=== PATIENT | female | born 1980 | race Caucasian/White ===

== ENCOUNTER → 2019-12-15 18:16 | Outpatient (CLI) | payer OTHER, SELFPAY ==
--- NOTE | ~2019-12-15 | MM_ITS ---
EXAMINATION: MM screening nicole BI w lissette HISTORY: Screening mammogram TECHNIQUE: Craniocaudal and mediolateral oblique 3-D tomosynthesis images were obtained and synthetic 2-D images were generated. CAD analysis was submitted and interpreted. COMPARISON: No prior mammogram is available for comparison at this institution. BREAST PARENCHYMAL COMPOSITION: The breasts are heterogeneously dense, which may obscure small masses . FINDINGS: There is no evidence of suspicious mass, calcification, or architectural distortion to sugg est malignancy in either breast. There has been no suspicious interval change. IMPRESSION: 1. No mammographic evidence of malignancy. 2. Recommend routine screening mammography in one year. BI-RADS Category 1: Negative Reviewed, dictated and finalized at location A.
== END ==
PROVIDERS: Visit Provider Nurse Practitioner Obstetrics & Gynecology
DX: Z12.31 Encounter for screening mammogram for malignant neoplasm of breast (principal)
CPT/HCPCS: 77063; 77067

== ENCOUNTER → 2021-08-03 16:23 | Outpatient (CLI) | payer OTHER, SELFPAY ==
--- NOTE | ~2021-08-03 | MM_ITS ---
EXAMINATION: MM screening nicole BI w lissette HISTORY: Screening mammogram TECHNIQUE: Craniocaudal and mediolateral oblique 3-D tomosynthesis images were obtained and synthetic 2-D images were generated. Bilateral rotated lateral CC views. CAD analysis was submitted and interp reted. COMPARISON: 12/15/2019 bilateral screening mammogram BREAST PARENCHYMAL COMPOSITION: The breasts are heterogeneously dense, which may obscure small masses . FINDINGS: There is no evidence of suspicious mass, calcification, or architectural distortion to sugg est malignancy in either breast. There has been no suspicious interval change. IMPRESSION: 1. No mammographic evidence of malignancy. 2. Recommend routine screening mammography in one year. BI-RADS Category 1: Negative Reviewed, dictated and finalized at location A. CAL STORE MANAGER
== END ==
PROVIDERS: Visit Provider Advanced Practice Midwife
DX: Z12.31 Encounter for screening mammogram for malignant neoplasm of breast (principal)
CPT/HCPCS: 77063; 77067

== ENCOUNTER → 2021-11-15 15:39 | Outpatient (CLI) | payer OTHER, SELFPAY ==
--- NOTE | ~2021-11-15 | XR_ITS ---
EXAMINATION: XR shoulder LT min 2V INDICATION: Left shoulder pain TECHNIQUE: Four views of the left shoulder are submitted. COMPARISON: None FINDINGS: Normal alignment. No fracture. Glenohumeral and acromioclavicular joint spaces are normal. Soft tissues are unremarkable. IMPRESSION: 1. No acute osseous abnormality. Reviewed, dictated and finalized at location A. MACY CONSULTANT
== END ==
PROVIDERS: PCP Physician Assistant; Visit Provider Physician Assistant
DX: M54.12 Radiculopathy, cervical region (principal)
CPT/HCPCS: 73030

== ENCOUNTER 2023-01-05 11:15 | Emergency (ER) | payer OTHER, SELFPAY ==
--- NOTE | 2023-01-05 11:21 | ED.NAVMDI ---
HPI - Nausea/Vomiting/Diarrhea General Chief complaint: Nausea/Vomiting/Diarrhea Stated complaint: indigestion symptoms Time Seen by Provider: 01/05/23 11:21 Source: patient Mode of arrival: ambulatory Limitations: no limitations History of Present Illness HPI Narrative: Sierra is a 42-year-old female patient presenting to the clinic today with complaints of indigestion since Sunday. She report she went to the ER on Sunday and had a cardiac workup done which was normal. States her EKG was normal at that time. Received prescription for omeprazole 20 mg tablets daily. She reports she is having indigestion without abdominal pain. States that the congestion is worse when lying down-prior and after eating. Denies any changes in bowel habits. Denies any hematemesis or blood in stool. Denies any ingestion pain currently. Related Data Home Medications Medication Instructions Recorded Confirmed omeprazole 20 mg capsule,delayed 20 mg PO DAILY 01/05/23 01/05/23 release Allergies Allergy/AdvReac Type Severity Reaction Status Date / Time No Known Allergies Allergy Unknown Verified 01/05/23 11:42 Review of Systems Review of Systems: Pertinent positives per HPI. Patient denies any fever, chills, rash, headache, visual changes, dizziness, cough, runny nose, sore throat, shortness of breath, chest pain, palpitations, nausea, vomiting, diarrhea, constipation, abdominal pain, or any urinary issues. PMFSH Comments At the time of my signature, I reviewed and agree with the nursing past medical, surgical, social, and family history. There is no relevant family history pertinent to the patient complaint. Exam Narrative: General: Well-developed, well nourished, in no apparent distress. Head: Normocephalic, atraumatic. Cardio: Regular rate and rhythm, s1 and s2 normal, no murmur appreciated. Resp: Clear to auscultation bilaterally, no rhonchi, rales, wheezing or rubs. Abdomen: Soft, pliable, bowel sounds present in all quadrants, mild tenderness over the epigastrium, no organomegly, no CVAT tenderness. Extremities: No deformity, no edema, no cyanosis, capillary refill less than 2 seconds, peripheral pulses palpable and strong. Integumentary: Steen, warm, and dry, intact without lesion, no rashes. Course Course Emergency Course: Portions of this record may have been created with voice recognition software. Level of Care: Express Care Visit Vital Signs Vital signs: Vital signs reviewed MDM - Nausea/Vomiting/Diarrhea MDM Narrative Medical decision making narrative: At the time of visit patient is resting comfortably on the exam table. She denies any current indigestion. Went to [facility] ER in [facility] on Sunday and had cardiac workup done which was unremarkable. She was prescribed omeprazole 20 mg tablets. Is still having GERD issues. Recommend increasing dosage to 40 mg daily and supportive measures were discussed with the patient. Differential Diagnosis Differential diagnosis: Likely other (Gastroenteritis, gastritis, GERD, H pylori, Whitaker's esophagus, gallbladder disease, peptic ulcer, GI bleed) Discharge Plan Discharge Clinical Impression: Gastroesophageal reflux disease Qualifiers: Esophagitis presence: esophagitis presence not specified Qualified Code(s): K21.9 - Gastro-esophageal reflux disease without esophagitis Patient Disposition: Home, Self-Care Condition: Stable Instructions: Antibiotic Form, GERD (Gastroesophageal Reflux Disease) (ED) Additional Instructions: Increase fluids and stay well hydrated Avoid eating spicy, greasy, fatty foods, chocolate, or drinking caffeine. Avoid foods that cause you to feel bloated. Stop smoking Lose weight/exercise Stay upright for at least 60 minutes after eating. May use tums, Maalox, Mylanta, or Rolaids for immediate relief Increase omeprazole dosing to 40 mg daily Follow up with your PCP on Sunday
[2023-01-05 11:30] VITALS: BP 126/82; PULSE 75; RESP 16; TEMP 36.8; O2SAT 98
== END 2023-01-05 11:44 | disposition home or self-care (01) ==
PROVIDERS: Emergency Provider Nurse Practitioner Family; PCP Family Medicine
DX: K21.9 Gastro-esophageal reflux disease without esophagitis (principal)
CPT/HCPCS: 99211; G0463

== ENCOUNTER → 2023-01-26 16:18 | Outpatient (CLI) | payer OTHER, SELFPAY ==
--- NOTE | ~2023-01-26 | MM_ITS ---
EXAMINATION: MM screening [facility] BI w lissette HISTORY: Screening mammogram TECHNIQUE: Craniocaudal and mediolateral oblique 3-D tomosynthesis images were obtained and synthetic 2-D images were generated. CAD analysis was submitted and interpreted. COMPARISON: 08/03/2021, 12/15/2019 BREAST PARENCHYMAL COMPOSITION: The breasts are heterogeneously dense, which may obscure small masses . FINDINGS: RIGHT BREAST: There is an obscured mass in the middle third of the slightly outer breast best appreci ated 4 cm from the nipple on the craniocaudal view. LEFT BREAST: There is a possible mass in the middle third of the central breast best appreciated 4 cm from the nipple on the mediolateral oblique view. IMPRESSION: 1. Bilateral breast findings as above. 2. Additional mammographic views and possible breast ultrasound are recommended. BI-RADS Category 0: Incomplete: Needs additional imaging evaluation. Reviewed, dictated and finalized at location A. IMPRESSION: 1. Bilateral breast findings as above. 2. Additional mammographic views and possible breast ultrasound are recommended . BI-RADS Category 0: Incomplete: Needs additional imaging evaluation.
== END ==
PROVIDERS: PCP Family Medicine; Visit Provider Nurse Practitioner Obstetrics & Gynecology
DX: Z12.31 Encounter for screening mammogram for malignant neoplasm of breast (principal); R92.8 Other abnormal and inconclusive findings on diagnostic imaging of breast
CPT/HCPCS: 77063; 77067

== ENCOUNTER 2023-02-12 09:00 | Outpatient (NON) | payer OTHER, SELFPAY | END 2023-02-12 09:01 | disposition home or self-care (01) | LOC: ANHLAB 02-13 07:43 | PROVIDERS: PCP Family Medicine; Visit Provider Internal Medicine Gastroenterology | DX: K29.70 Gastritis, unspecified, without bleeding (principal) | CPT/HCPCS: 88305 ==

== ENCOUNTER 2023-02-12 10:02 | Day surgery (SDC) | payer OTHER, SELFPAY ==
[2023-01-30 08:29] VITALS: BMI 25.9
--- NOTE | 2023-02-09 14:15 | P.PNAN_ITS ---
Anes - Initial Pre Proc Eval Procedure: Operation Date: 02/12/23 12:30 Proposed Procedures p Esophagogastroduodenoscopy - Leonardo Wang MD Date/Time: 02/09/23 14:15 Surgeon: Leonardo Wang MD Pre Op Diagnosis: Heart Burn Patient Data Age: 42 Gender: F Height: 1.7 m Weight: 75 kg Allergies Allergy/AdvReac Type Severity Reaction Status Date / Time No Known Allergies Allergy Unknown Verified 02/12/23 11:31 Home Medications Medication Instructions Recorded Confirmed Type omeprazole 40 mg capsule,delayed 40 mg PO DAILY #90 caps 01/09/23 02/12/23 Rx release alprazolam 0.5 mg tablet 0.5 mg PO DAILY PRN anxiety #30 02/02/23 02/12/23 Rx tabs Patient hx anesthesia problems: none Family hx anesthesia problems: none Results Review: All pre-operative results and documents have been reviewed as part of the pre- operative evaluation. [facility] Past Medical History Medical History Gastritis Surgical History Surgical History History of ankle surgery right 2001 History of anterior cruciate ligament surgery left 1996 History of D&C miscarriage 2013 Family History Family History Father Diabetes mellitus Mother No problems noted. Social History Social History (Updated 01/09/23 @ 15:34 by Nandini Maurer MA) Smoking status: Never smoker Alcohol intake: current Alcohol use details: occassional Substance use: never Substance use type: does not use Lack of Transportation: No Lack of Food: Never True Current Housing: I Have Housing Concerned About Future Housing: No Difficulty Paying Gas/Electric Bills: No Difficulty Paying for Meds: No Currently Unemployed: No Education: Master's Degree or Higher Difficulty w/ Childcare or Family Care: No Living arrangements: with family Occupation/Education: occupation Gender identity (if verbalized by the patient): Female Sexual Orientation (if Verbalized by the Patient): Straight or Heterosexual Spiritual care concerns: No Anes - Eval Final PreProcedure Day of Procedure 02/09/23 14:15 Patient weight: overweight Heart: regular rate and rhythm Lungs: clear to auscultation Airway: Mallampati scale class II Neurological: alert and oriented Last oral intake: >/= 8 hours ASA classification: II Emergent: no Anesthetic plan: proceed Anesthesia type and monitoring: general GIVS and standard monitoring Results Review: All pre-operative results and documents have been reviewed as part of the pre- operative evaluation. Informed Consent: The patient's anesthetic plan and its attendant risks and benefits were discussed with the patient/family/POA. Questions were solicited and answers provided to the satisfaction of the patient/family/POA.
[2023-02-12 11:00] VITALS: BP 126/88; PULSE 73; RESP 20; TEMP 37; O2SAT 100
--- NOTE | 2023-02-12 11:03 | PM.HPGS ---
History of Present Illness History of Present Illness Consent: Risks, benefits, and alternatives have been discussed and questions answered. Patient agrees to proceed with procedure. Chief complaint: Heart Burn Narrative: Sierra Amador is a 42 year old female Who suffers from indigestion. It began with chest pain 1 night. She actually went to urgent care and was evaluated for possible heart disease. She is somewhat improved since starting omeprazole. She believes that her symptoms are worsened by or may be partly related to stress. She has had no dysphagia. She did lose about 14 lb. She has been going through quite a bit of stress lately. Review of Systems Review of Systems: All systems reviewed & are unremarkable except as noted in HPI and below PMFSH Past Medical History Medical History Gastritis Surgical History Surgical History History of ankle surgery right 2001 History of anterior cruciate ligament surgery left 1996 History of D&C miscarriage 2006, 2013 Family History Family History Father Diabetes mellitus Mother No problems noted. Social History Social History (Updated 01/09/23 @ 15:34 by Nandini Maurer MA) Smoking status: Never smoker Alcohol intake: current Alcohol use details: occassional Substance use: never Substance use type: does not use Lack of Transportation: No Lack of Food: Never True Current Housing: I Have Housing Concerned About Future Housing: No Difficulty Paying Gas/Electric Bills: No Difficulty Paying for Meds: No Currently Unemployed: No Education: Master's Degree or Higher Difficulty w/ Childcare or Family Care: No Living arrangements: with family Occupation/Education: occupation Gender identity (if verbalized by the patient): Female Sexual Orientation (if Verbalized by the Patient): Straight or Heterosexual Spiritual care concerns: No Meds Home Medications and Allergies Home Medications Medication Instructions Recorded Confirmed Type omeprazole 40 mg capsule,delayed 40 mg PO DAILY #90 caps 01/09/23 02/12/23 Rx release alprazolam 0.5 mg tablet 0.5 mg PO DAILY PRN anxiety #30 02/02/23 02/12/23 Rx tabs Allergies Allergy/AdvReac Type Severity Reaction Status Date / Time No Known Allergies Allergy Unknown Verified 02/12/23 11:31 Exam Const: General: alert Orientation/consciousness: patient oriented x3 Resp: Auscultation: clear to auscultation bilaterally Cardio: Rhythm: regular rhythm GI: GI Palp: Yes Soft to palpation and No Tenderness to palpation present (GI) Neuro: General: patient oriented x3 Assessment and Plan Assessment and plan (1) Gastroesophageal reflux disease: Qualifiers: Esophagitis presence: esophagitis presence not specified Qualified Code(s): K21.9 - Gastro-esophageal reflux disease without esophagitis Code(s): K21.9 - Gastro-esophageal reflux disease without esophagitis Status: Inactive Assessment and Plan: EGD with possible biopsy or dilatation or cautery.
[2023-02-12] MEDS: LACTATED RINGERS 1,000 ML 150 ML IV CONT (11:34)
[2023-02-12 12:16] VITALS: BP 101/60; PULSE 63; RESP 14; O2SAT 97
[2023-02-12 12:26] VITALS: BP 115/72; PULSE 74; RESP 16; O2SAT 100
[2023-02-12 12:36] VITALS: BP 124/81; PULSE 70; RESP 18; O2SAT 100
--- NOTE | 2023-02-12 13:23 | WPDANESPN ---
Anes - Prog Note Post-Op Date/Time: 02/12/23 13:23 Cardiovascular status: normal Respiratory status: normal Airway patency: baseline Mental status: baseline Post-Op hydration status: normal Vital Signs: Last Vital Signs Temp 37.0 C 02/12/23 11:00 Pulse 70 02/12/23 12:36 Resp 18 02/12/23 12:36 BP 124/81 02/12/23 12:36 Pulse Ox 100 02/12/23 12:36 O2 Del Method Room Air 02/12/23 12:36 Pain Score (VAS): 0 I/O: Intake & Output 02/11/23 02/12/23 02/12/23 23:59 07:59 15:59 Intake Total 350 Balance 350 Post-procedural complaints: none Patient Feedback: Patient satisfied with anesthetic care. Other Findings: Patient vital signs back to baseline. Patient denies nausea and vomiting. Patient's pain under control. Patient OK for discharge.
== END 2023-02-12 12:58 | disposition home or self-care (01) ==
PROVIDERS: PCP Family Medicine; Visit Provider Internal Medicine Gastroenterology
PROC: 0DJ08ZZ Inspection of Upper Intestinal Tract, Via Natural or Artificial Opening Endoscopic (ICD-10-PCS; CPT 43235; principal; 2023-02-12 12:30)
DX: K21.9 Gastro-esophageal reflux disease without esophagitis (principal)
CPT/HCPCS: 43239

== ENCOUNTER 2023-02-21 12:03 | Outpatient (CLI) | payer OTHER, SELFPAY ==
--- NOTE | ~2023-02-21 | MMUS_ITS ---
EXAMINATION: MM diagnostic nicole BI w lissette, US breast BI complete HISTORY: 01/26/2023 screening mammogram findings: Obscured mass in middle third of slightly outer right breast 4 cm from nipple on CC view and possible mass in middle third of central left breast 4 cm fro m nipple on MLO view TECHNIQUE: Additional 3-D tomosynthesis images of both breasts were performed and synthetic 2-D image s were generated. CAD analysis was submitted and interpreted. High resolution bilateral complete [facility]ia st ultrasound examination including all 4 quadrants and subareolar areas was performed. COMPARISON: 01/26/2023 bilateral screening mammogram FINDINGS: MAMMOGRAPHIC FINDINGS: Approximately 1.4 cm circumscribed low-density opacity is suggested in the inner aspect of the upper right breast, partially obscured by heterogeneously dense fibroglandular stroma. The heterogeneously dense stroma may obscure additional masses. No suspicious mass or architectural distortion is evident. No malignant calcification, skin thickenin g or retraction of either breast is detected. ULTRASOUND: Right breast: 7:00 2 cm from nipple: Parallel circumscribed approximately 2.3 x 5 mm sonolucency with through trans mission, likely a duct or cyst 10:00 7 cm from nipple: Approximately 4 mm simple cyst with through transmission posterior enhancemen t 10:00 2 cm from nipple: 12.5 x 14.8 x 10.1 mm simple cyst with through transmission posterior enhance ment Left breast: 12:00 near nipple: 9.7 x 7.6 x 6.5 mm circumscribed sonolucency with through transmission posterior e nhancement, consistent with simple cyst 2:00 3 cm from nipple: Parallel circumscribed hypoechoic 4.5 x 3.1 x 5.1 mm lesion without internal v ascularity or posterior shadowing, likely benign 2:00 2 cm from nipple: Parallel circumscribed 2.2 x 5 mm hypoechoic lesion without internal vasculari ty or posterior shadowing, benign in appearance IMPRESSION: 1. Benign findings 2. Routine annual mammographic screening is recommended BI-RADS Category 2: Benign finding(s). Reviewed, dictated and finalized at location A. IMPRESSION: 1. Benign findings 2. Routine annual mammographic screening is recommended BI-RADS Category 2: Benign finding(s).
== END 2023-02-21 12:04 | disposition home or self-care (01) ==
PROVIDERS: PCP Family Medicine; Visit Provider Physician Assistant
DX: N63.0 Unspecified lump in unspecified breast (principal); R92.8 Other abnormal and inconclusive findings on diagnostic imaging of breast
CPT/HCPCS: 76641; 77062; 77066; G0279

== ENCOUNTER 2023-07-10 15:28 | Emergency (ER) | payer OTHER, SELFPAY ==
--- NOTE | ~2023-07-10 | US_ITS ---
EXAMINATION: US right upper quadrant DATE: 07/10/2023 17:04 INDICATION: Right upper quadrant abdominal pain. TECHNIQUE: Multiple grayscale and Doppler ultrasound images of the abdomen were obtained. COMPARISON: None FINDINGS: The visualized portions of the head, body, and tail of the pancreas are normal. The liver i s normal without focal lesion. The gallbladder is normal in size and contains gallstones. No gallblad galindo wall thickening or sonographic Leroy sign. The common duct is normal and measures 3 mm. Right ki dney is normal. IMPRESSION: 1. Cholelithiasis. No evidence of acute cholecystitis. Reviewed, dictated and finalized at location E.
[2023-07-10 15:37] VITALS: BP 141/71; PULSE 67; RESP 18; TEMP 36.7; O2SAT 100
[2023-07-10 16:00] LABS: Basophils Percent Auto 0.5 % (0.2-1.2); Eosinophils Absolute Auto 0.2 K/mm3 (0-0.3); Eosinophils Percent Auto 2.5 % (0-4.4); Hematocrit 36.6 % (37.0-47.0); Hemoglobin 12.1 g/dL (12.0-15.0); Immature Granulocyte Absolute 0.02 K/mm3 (0.00-0.031); Immature Granulocyte Percent A 0.3 % (0-0.5); Lymphocytes Absolute Auto 1.52 K/mm3 (0.9-3.2); Lymphocytes Percent Auto 25.2 % (18.3-44.2); Mean Corpuscular HGB Conc 33.1 g/dl (32-36); Mean Corpuscular Hemoglobin 30.4 pg (26-34); Mean Platelet Volume 10.3 fl (7.4-10.4); Monocytes Absolute Auto 0.4 K/mm3 (0.1-0.6); Monocytes Percent Auto 6.5 % (2.6-8.5); Neutrophils Absolute Auto 3.9 K/mm3 (1.3-6.7); Platelet Count Result 265 k/mm3 (150-375); Red Blood Count 3.98 M/mm3 (4.2-5.4); Red Cell Distribution Width 12.2 % (11.5-14.5)
[2023-07-10 16:09] LABS: Alanine Aminotransferase 17 U/L (6-35); Albumin Level 4.6 g/dL (3.5-5.1); Alkaline Phosphatase 53 U/L (38-126); Anion Gap 8 mmol/L (8-16); Aspartate Amino Transferase 28 U/L (14-36); Bilirubin,Total 0.6 mg/dL (0.2-1.3); Blood Urea Nitrogen 14 mg/dL (7-17); Calcium 9.2 mg/dL (8.4-10.2); Carbon Dioxide 26 mmol/L (22-30); Chloride 102 mmol/L (98-107); Estimated Glomerular Filt Rate > 60; Glucose 124 mg/dL (65-110); Lipase 126 U/L (23-300); Potassium 3.7 mmol/L (3.4-5.0); Sodium 136 mmol/L (137-145)
--- NOTE | 2023-07-10 16:21 | ED.GENADULT ---
HPI - General Adult General Chief complaint: Abdominal Pain <Cande Reveles GEOGRAPHIC INFORMATION SYSTEMS ENGINEER - Last Filed: 07/10/23 16:27> Stated complaint: RUQ abdominal pain <Cande Reveles GEOGRAPHIC INFORMATION SYSTEMS ENGINEER - Last Filed: 07/10/23 16:27> Time Seen by Provider: 07/10/23 16:47 <Cande Peña January GEOGRAPHIC INFORMATION SYSTEMS ENGINEER - Last Filed: 07/10/23 16:27> History of Present Illness HPI narrative: Sierra Amador is a 43 y/o female who presents with reports of having right upper quadrant pain that was severe 9 days ago and it lasted about 2 hours, the pain cramping to the RUQ area happened again 3 days ago and then spontaneously again today. She states that the pain was quite severe in the RUQ radiating to the mid upper abdomen. She reports some nausea with the pain episodes/ no vomiting/ she broke out in a sweat today during the pain. Currently she states the pain is gone. Denies any abdominal surgeries in the past, unable to correlate weather eating /drinking make her pain better or worse Denies changes with urine Denies any changes to bowels. <Cande Peña January, GEOGRAPHIC INFORMATION SYSTEMS ENGINEER - Last Filed: 07/10/23 16:27> Related Data Allergies/adverse reactions: Allergies Allergy/AdvReac Type Severity Reaction Status Date / Time No Known Allergies Allergy Unknown Verified 07/10/23 15:29 <Cande Peña January GEOGRAPHIC INFORMATION SYSTEMS ENGINEER - Last Filed: 07/10/23 16:27> Review of Systems Review of Systems: All systems reviewed & are unremarkable except as noted in HPI and below <Alfonso Monroy MD - Last Filed: 07/10/23 18:13> Constitutional: Constitutional: Denies chills and Denies fever(s) <Alfonso Monroy MD - Last Filed: 07/10/23 18:13> Cardiovascular: Cardiovascular: Denies chest pain, Denies rapid heart rate and Denies radiating jaw, neck or arm pain <Alfonso Monroy MD - Last Filed: 07/10/23 18:13> Respiratory: Respiratory: Denies cough and Denies dyspnea <Alfonso Monroy MD - Last Filed: 07/10/23 18:13> Gastrointestinal: Gastrointestinal: Reports abdominal pain, Denies diarrhea, Denies nausea and Denies vomiting <Alfonso Monroy MD - Last Filed: 07/10/23 18:13> Genitourinary: Genitourinary: Denies dysuria and Denies flank pain <Alfonso Monroy MD - Last Filed: 07/10/23 18:13> [facility] Past Medical History Medical History: Medical History Gastritis <Cande Reveles APRN - Last Filed: 07/10/23 16:27> Surgical History Surgical History: Surgical History History of ankle surgery right 2001 History of anterior cruciate ligament surgery left 1996 History of D&C miscarriage 2006, 2013 <Cande Reveles APRN - Last Filed: 07/10/23 16:27> Family History Family History: Family History Father Diabetes mellitus Mother No problems noted. <Cande Reveles APRN - Last Filed: 07/10/23 16:27> Social History Social History: Social History Smoking status: Never smoker Alcohol intake: current Alcohol use details: occassional Substance use: never Substance use type: does not use Lack of Transportation: No Lack of Food: Never True Current Housing: I Have Housing Concerned About Future Housing: No Difficulty Paying Gas/Electric Bills: No Difficulty Paying for Meds: No Currently Unemployed: No Education: Master's Degree or Higher Difficulty w/ Childcare or Family Care: No Living arrangements: with family Occupation/Education: occupation Gender identity (if verbalized by the patient): Female Sexual Orientation (if Verbalized by the Patient): Straight or Heterosexual Spiritual care concerns: No <Cande Reveles APRN - Last Filed: 07/10/23 16:27> Exam Narrative: GENERAL: Well-appearing, well-nourished, and in no acute distress. HEAD: Normocephalic, atraumatic. ENT: Mucous membranes moist. CHEST: Clear to auscultation. No r
[2023-07-10 17:25] VITALS: BP 150/95; PULSE 98; RESP 17
[2023-07-10 17:52] LABS: Appearance Urine Clear (Clear); Bacteria Urine None Seen /hpf; Bilirubin Urine Negative (Negative); Blood Urine Trace (Negative); Color Urine Yellow (Yellow); Glucose Urine UA Negative (Negative); Ketones Urine Negative (Negative); Leukocyte Esterase Ur 1+ LEU/UL (Negative); Need Manual Microscopic Reviewed; Nitrate Urine Negative (Negative); Non Pathogenic Casts 0-2; Protein Urine Negative (Negative); RBC Urine 0-2 /hpf (0-2); Specific Grav Ur 1.011 (1.001-1.035); Squamous Epithelial Cell Urine None seen /hpf (Few); Urobilinogen Urine 0.2 mg/dL (<2.0); WBC Urine 0-5 /hpf; pH Urine 6.5 (5.0-9.0)
[2023-07-10 17:57] LABS: Add Urine Microscopic? YES
== END 2023-07-10 18:14 | disposition home or self-care (01) ==
LOC: ANHED 17:59
PROVIDERS: Emergency Medicine; Emergency Provider Emergency Medicine; PCP Family Medicine
DX: K80.70 Calculus of gallbladder and bile duct without cholecystitis without obstruction (principal)
CPT/HCPCS: 36415; 76705; 80053; 81001; 81025; 83690; 85025; 99284

== ENCOUNTER 2023-08-01 05:56 | Day surgery (SDC) | payer OTHER, SELFPAY ==
[2023-07-23 10:18] VITALS: BMI 24.4
[2023-07-24 08:32] VITALS: BMI 23.8
[2023-08-01] VITALS (7 sets, daily range): BP systolic 122–148; BP diastolic 63–78; PULSE 56–105; RESP 12–20; TEMP 36.4–36.8; O2SAT 97–100
[2023-08-01] MEDS: ACETAMINOPHEN 500 MG TABLET 1000 MG PO (06:36)
--- NOTE | 2023-08-01 06:40 | P.PNAN_ITS ---
Anes - Initial Pre Proc Eval Procedure: Operation Date: 08/01/23 08:00 Proposed Procedures p Laparoscopic Cholecystectomy - Benedicto Kenney DO Date/Time: 08/01/23 06:40 Surgeon: Benedicto Kenney DO Pre Op Diagnosis: Symptomatic Cholelithiasis Patient Data Age: 43 Gender: F Height: 1.7 m Weight: 69 kg Allergies Allergy/AdvReac Type Severity Reaction Status Date / Time No Known Allergies Allergy Unknown Verified 08/01/23 06:40 Home Medications Medication Instructions Recorded Confirmed Type alprazolam 0.5 mg tablet 0.5 mg PO DAILY PRN anxiety #30 02/02/23 07/24/23 Rx tabs omeprazole 20 mg capsule,delayed 20 mg PO DAILY #30 caps 06/27/23 08/01/23 Rx release hydrocodone 5 mg-acetaminophen 325 1 tablet PO Q6H PRN pain #12 tabs 07/10/23 07/24/23 Rx mg tablet ondansetron 4 mg disintegrating 4 mg PO Q6H PRN nausea and 07/10/23 07/24/23 Rx tablet vomiting #10 tabs Patient hx anesthesia problems: none Family hx anesthesia problems: none Results Review: All pre-operative results and documents have been reviewed as part of the pre- operative evaluation. [facility] Past Medical History Medical History (Updated 08/01/23 @ 06:40 by Byron Mccartney DO) Anxiety Gastritis Surgical History Surgical History History of ankle surgery right 2001 History of anterior cruciate ligament surgery left 1996 History of D&C miscarriage 2013 Family History Family History Father Diabetes mellitus Mother No problems noted. Social History Social History Smoking status: Never smoker Second hand tobacco smoke exposure: No Alcohol intake: current Drinks per week: 0 Alcohol use details: 2 PER MONTH Substance use: never Substance use type: does not use Lack of Transportation: No Lack of Food: Never True Current Housing: I Have Housing Concerned About Future Housing: No Difficulty Paying Gas/Electric Bills: No Difficulty Paying for Meds: No Currently Unemployed: No Education: Master's Degree or Higher Difficulty w/ Childcare or Family Care: No Living arrangements: with family Occupation/Education: occupation Gender identity (if verbalized by the patient): Female Sexual Orientation (if Verbalized by the Patient): Straight or Heterosexual Spiritual care concerns: No Anes - Eval Final PreProcedure Day of Procedure 08/01/23 06:40 Patient weight: normal Heart: regular rate and rhythm Lungs: clear to auscultation Airway: Mallampati scale class II Neurological: alert and oriented Last oral intake: >/= 8 hours ASA classification: II Emergent: no Anesthetic plan: proceed Anesthesia type and monitoring: general ETT and standard monitoring Results Review: All pre-operative results and documents have been reviewed as part of the pre- operative evaluation. Informed Consent: The patient's anesthetic plan and its attendant risks and benefits were discussed with the patient/family/POA. Questions were solicited and answers provided to the satisfaction of the patient/family/POA.
[2023-08-01] MEDS: LACTATED RINGERS 1,000 ML 30 ML IV CONT (06:51)
--- NOTE | 2023-08-01 07:52 | WPDHPUPDATE1 ---
History and Physical Update Update Date/Time: 08/01/23 07:52 History and Physical has been reviewed, including an updated exam of the patient. There are NO changes in the patient's condition. Risks, benefits, and alternatives have been discussed and questions answered. Patient agrees to proceed with procedure.
[2023-08-01] MEDS: ceFAZolin SODIUM 2 GM/20 ML SW SYRINGE IV PUSH (08:02)
[2023-08-01] MEDS: BUPIVACAINE/EPINEPHRINE 0.5% 50 ML VIAL 30 ML INFILTRATE (08:50)
--- NOTE | 2023-08-01 09:02 | W.PM.PROC2 ---
Procedure Note - Detailed Date of Procedure 08/01/23 Pre-op Diagnosis Symptomatic Cholelithiasis Post-op Diagnosis Same Procedure Performed Laparoscopic cholecystectomy Surgeon Benedicto Kenney, DO Anesthesia General and Local (0.5% bupivacaine) Indications This is a 43-year-old woman who presented with recurrent right upper quadrant abdominal pain. Her symptoms started about 1 month ago. She presented to the emergency department at [facility] on 07/10/2023. Labs were essentially normal and abdominal ultrasound showed evidence of cholelithiasis. She was able to be discharged home from the emergency department and followed up in the office. Discussions were made with the patient about treatment options and decision was made to proceed with laparoscopic cholecystectomy. Findings Laparoscopic cholecystectomy was performed. The patient's gallbladder was slightly dilated. Cystic duct appeared normal in size. No other significant abnormalities were noted. There were possibly a couple tiny stones palpable within the gallbladder. The gallbladder was removed and sent to the lab for pathology. Description of Procedure Procedure as well as risks, benefits, and alternatives were discussed with patient. Written consent was obtained and placed in chart prior to procedure. The patient was brought back to surgical suite. Patient was placed in supine position on operating table. Time-out was done to confirm patient and procedure. Patient was then intubated by the anesthesia department. Abdomen was prepped and draped in sterile fashion using chlorhexidine prep. 0.5% bupivacaine with epinephrine was infiltrated at each site of incision. An 11 millimeter vertical incision was made at the inferior portion of the umbilicus using a 15 blade scalpel. Blunt dissection was carried down to the linea alba. The linea alba was then incised using a 15 blade scalpel. The peritoneum was then bluntly entered. An 11 millimeter trocar was inserted and carbon dioxide insufflation was used to create a pneumoperitoneum. The camera was inserted and the abdomen was inspected. The patient was placed in reverse Trendelenberg position and rotated slightly to the left. A 5 millimeter incision was made in the epigastric region, and a 5 millimeter trocar was inserted under direct visualization. Two 5 millimeter incisions were made in the right upper quadrant, and two 5 millimeter trocars were inserted under direct visualization. The gallbladder was identified and grasped at the fundus and retracted superiorly. It was then grasped at the infundibulum retracted laterally. Careful dissection around the neck of the gallbladder was performed using blunt dissection with a [place] grasper and hook electrocautery. The cystic duct was identified, and a window was created behind it. The cystic artery was also identified and a window was created behind it. The critical view of safety was identified, visualizing the cystic duct running directly into the neck of the gallbladder, and the cystic artery running directly into the wall of the gallbladder. A 5 millimeter clip pen maker was then used to place 2 clips proximally and 1 clip distally on both the cystic duct and cystic artery. They were then both transected using endoscopic scissors. Once safely away from the lulú hepatitis, the gallbladder was dissected free from the liver bed using hook electrocautery. Hemostasis was achieved along the way. The gallbladder was removed completely and then removed through the umbilical port. The liver bed was then inspected. Hemostasis appeared adequate, and our clips appeared secure. The area was gently irrigated with sterile saline. No other abnormalities were seen. The patient was flattened out in bed, and 1 final inspection was made around the abdominal cavity. The ports were then removed under direct visualization, the camera was removed, and the pneumoperitoneum was released. The fascia
[2023-08-01] MEDS: fentaNYL CITRATE INJ (*CRX) 100 MCG/2 ML VIAL 25 MCG IV PUSH ×4 (09:13→09:37)
--- NOTE | 2023-08-01 09:22 | SUR.PHASEI ---
0920; DR GARCES AT BEDSIDE SPEAKING TO PT.
--- NOTE | 2023-08-01 09:39 | SUR.PHASEI ---
PT AWAKE AND ALERT. RESTING QUIETLY. STATES PAIN IMPROVED, DOWN TO 4/10. RESP EVEN UNLABORED, P,W,D.
--- NOTE | 2023-08-01 09:41 | SUR.PHASEI ---
PT RESTING QUIETLY WITH EYES CLOSED NOW, CALM AND RELAXED
--- NOTE | 2023-08-01 10:16 | WPDANESPN ---
Anes - Prog Note Post-Op Date/Time: 08/01/23 10:16 Cardiovascular status: normal Respiratory status: normal Airway patency: baseline Mental status: baseline Post-Op hydration status: normal Vital Signs: Last Vital Signs Temp 36.4 C L 08/01/23 09:04 Pulse 58 L 08/01/23 09:50 Resp 14 08/01/23 09:50 BP 141/72 H 08/01/23 09:50 Pulse Ox 100 08/01/23 09:50 O2 Del Method Room Air 08/01/23 09:50 O2 Flow Rate 6 08/01/23 09:20 Pain Score (VAS): 2 I/O: Intake & Output 07/31/23 08/01/23 08/01/23 23:59 07:59 15:59 Intake Total 100 Output Total 300 Balance -200 Post-procedural complaints: none Patient Feedback: Patient satisfied with anesthetic care. Other Findings: Patient vital signs back to baseline. Patient denies nausea and vomiting. Patient's pain under control. Patient OK for discharge.
[2023-08-01] MEDS: oxyCODONE HCL (*CRX) 5 MG TAB IR PO (10:20)
== END 2023-08-01 10:30 | disposition home or self-care (01) ==
PROVIDERS: PCP Family Medicine; Visit Provider Surgery
PROC: 0FT44ZZ Resection of Gallbladder, Percutaneous Endoscopic Approach (ICD-10-PCS; CPT 47562; principal; 2023-08-01 08:00)
DX: K80.20 Calculus of gallbladder without cholecystitis without obstruction (principal)
CPT/HCPCS: 47562

== ENCOUNTER 2023-08-01 11:15 | Outpatient (NON) | payer OTHER, SELFPAY | END 2023-08-01 11:16 | disposition home or self-care (01) | LOC: ANHLAB 08-02 11:17 | PROVIDERS: PCP Family Medicine; Visit Provider Surgery | DX: K80.10 Calculus of gallbladder with chronic cholecystitis without obstruction (principal) | CPT/HCPCS: 88304 ==

== ENCOUNTER 2024-03-01 16:06 | Emergency (ER) | payer OTHER, SELFPAY ==
[2024-03-01 16:19] VITALS: BP 115/74; PULSE 80; RESP 18; TEMP 37.1; O2SAT 100
--- NOTE | 2024-03-01 16:41 | ED.EAR ---
HPI - Ear Problem General Chief complaint: Ear Stated complaint: lt ear pain Time Seen by Provider: 03/01/24 16:10 Source: patient Mode of arrival: ambulatory Limitations: no limitations History of Present Illness HPI Narrative: 44-year-old female presents to [facility] with complaints of left ear pain, pressure and tinnitus for the past 2 weeks. Patient reports that she saw her primary care provider a week ago and had wax removed and was instructed to use Afrin. Patient reports that she use edev-lav-hoebogn Afrin nasal spray for few days with no relief. Patient denies fever, body aches, chills, nausea vomiting or diarrhea. Patient reports that the pressure and pain to her left ear became worse today. MD Complaint: ear pain Location: left ear Discharge from ear: Reports no Associated symptoms ear: tinnitus Related Data Home Medications Medication Instructions Recorded Confirmed alprazolam 0.5 mg tablet 0.5 mg PO DAILY anxiety 03/01/24 03/01/24 Allergies Allergy/AdvReac Type Severity Reaction Status Date / Time No Known Allergies Allergy Unknown Verified 03/01/24 16:26 Review of Systems Constitutional: Constitutional: Denies chills, Denies fatigue, Denies fever(s) and Denies weakness ENT: Denies vertigo, Denies dizziness, Denies epistaxis, Denies nasal congestion and Denies sore throat Comments: Left ear pain and pressure Respiratory: Respiratory: Denies cough, Denies dyspnea and Denies wheezing Gastrointestinal: Gastrointestinal: Denies diarrhea, Denies nausea and Denies vomiting Musculoskeletal: Musculoskeletal: Denies arthralgias and Denies joint swelling Integumentary/Breasts: Skin/Breast: Denies erythema and Denies rash Neurologic: Denies dizziness, Denies syncope and Denies headache(s) [facility] Past Medical History Medical History Anxiety Gastritis Surgical History Surgical History History of ankle surgery right 2001 History of anterior cruciate ligament surgery left 1996 History of D&C miscarriage 2006, 2013 Hx laparoscopic cholecystectomy 08/01/23 Family History Family History Father Diabetes mellitus Mother No problems noted. Social History Social History Smoking status: Never smoker Second hand tobacco smoke exposure: No Alcohol intake: current Drinks per week: 0 Alcohol use details: 2 PER MONTH Substance use: never Substance use type: does not use Do You Feel Safe in your Home?: Yes Lack of Transportation: No Lack of Food: Never True Current Housing: I Have Housing Concerned About Future Housing: No Difficulty Paying Gas/Electric Bills: No Difficulty Paying for Meds: No Currently Unemployed: No Education: Master's Degree or Higher Difficulty w/ Childcare or Family Care: No Living arrangements: with family Occupation/Education: occupation Gender identity (if verbalized by the patient): Female Sexual Orientation (if Verbalized by the Patient): Straight or Heterosexual Spiritual care concerns: No Comments At time of signature, I agree with nursing past medical, surgical, social and family history. There is no relevant family history pertinent to the presenting complaint. Exam Const: General: healthy appearing and no acute distress Nutritional Appearance: well nourished Orientation/consciousness: patient oriented x3 Limitations: no limitations HENMT: Head: normal to inspection Ears: external ears normal, EAC's normal and TM abnormal dull on the left, wth effusion serous on the left, erythematous on the left and with fluid behind the TM on the left Face/Nose/Sinus: Normal external nose present Mouth: Yes Normal oral and palatal mucosa present and Yes moist mucous membranes Teeth and gingiva: dentition n
== END 2024-03-01 16:51 | disposition home or self-care (01) ==
PROVIDERS: Emergency Provider Nurse Practitioner Family; PCP Family Medicine
DX: H66.92 Otitis media, unspecified, left ear (principal); F41.9 Anxiety disorder, unspecified
CPT/HCPCS: 99213; G0463

== ENCOUNTER 2024-03-04 09:17 | Emergency (ER) | payer OTHER, SELFPAY ==
--- NOTE | 2024-03-04 09:27 | ED.EAR ---
HPI - Ear Problem General Chief complaint: Ear Stated complaint: Left Ear Pain Time Seen by Provider: 03/04/24 09:30 Source: patient and RN notes reviewed Mode of arrival: ambulatory Limitations: no limitations History of Present Illness HPI Narrative: 44-year-old female presents with concern for ongoing ear pain. Reports she was treated for an ear infection is still taking steroid and antibiotics. Reports she is not feeling much improvement in her pain. She denies drainage from the ear. She has also been taking some eujf-kuw-frnsshq medications including Flonase. MD Complaint: ear pain Related Data Home Medications Medication Instructions Recorded Confirmed alprazolam 0.5 mg tablet 0.5 mg PO DAILY anxiety 03/01/24 03/04/24 Allergies Allergy/AdvReac Type Severity Reaction Status Date / Time No Known Allergies Allergy Unknown Verified 03/04/24 09:31 Review of Systems Review of Systems: CONSTITUTIONAL: Denies malaise, chills, sweats, or fever. EYES: Denies visual changes, redness, or discharge. ENT: Denies rhinorrhea, congestion, sinus pain, and sore throat. Reports left ear pain CARDIOVASCULAR: Denies chest pain, palpitations, or edema. RESPIRATORY: Denies cough. Denies dyspnea. GASTROINTESTINAL: Denies abdominal pain, nausea, vomiting, diarrhea SKIN: Denies rash or itching. MUSCULOSKELETAL: Denies myalgia. NEUROLOGIC: Denies headache. All systems reviewed & are unremarkable except as noted in HPI and below PMFSH Past Medical History Medical History Anxiety Gastritis Surgical History Surgical History History of ankle surgery right 2001 History of anterior cruciate ligament surgery left 1996 History of D&C miscarriage 2006, 2013 Hx laparoscopic cholecystectomy 08/01/23 Family History Family History Father Diabetes mellitus Mother No problems noted. Social History Social History Smoking status: Never smoker Second hand tobacco smoke exposure: No Alcohol intake: current Drinks per week: 0 Alcohol use details: 2 PER MONTH Substance use: never Substance use type: does not use Do You Feel Safe in your Home?: Yes Lack of Transportation: No Lack of Food: Never True Current Housing: I Have Housing Concerned About Future Housing: No Difficulty Paying Gas/Electric Bills: No Difficulty Paying for Meds: No Currently Unemployed: No Education: Master's Degree or Higher Difficulty w/ Childcare or Family Care: No Living arrangements: with family Occupation/Education: occupation Gender identity (if verbalized by the patient): Female Sexual Orientation (if Verbalized by the Patient): Straight or Heterosexual Spiritual care concerns: No Comments At time of signature, agree with nursing past medical, surgical, social and family history. There is no relevant family history pertinent to the presenting complaint Exam Narrative: GENERAL: Well-appearing, well-nourished, and in no acute distress. HEAD: Normocephalic EYES: PERRLA, conjunctivae clear ENT: Nares clear. Mucous membranes moist. TM pearly martinez with sharp light reflex bilaterally; no tragal tenderness. Oropharynx not erythematous without lesions. Tonsils not enlarged and without exudate, no drooling, no hoarseness, no trismus, uvula midline. NECK: Supple. No lymphadenopathy HEART: Regular rate and rhythm. No murmur heard. SKIN: Warm, dry, no rash. NEURO: Alert and oriented x3. PSYCH: Normal mood and affect Course Course Emergency Course: Patient is aware of diagnosis, understands and agrees to treatment plan. Anticipatory guidance given. Patient agrees to follow-up as directed and is aware of reasons to seek care at the emergency department. Portions of this record may
[2024-03-04 09:29] VITALS: BP 121/75; PULSE 85; RESP 16; TEMP 36.6; O2SAT 100
== END 2024-03-04 09:41 | disposition home or self-care (01) ==
PROVIDERS: Emergency Provider Nurse Practitioner; PCP Family Medicine
DX: H92.02 Otalgia, left ear (principal); F41.9 Anxiety disorder, unspecified
CPT/HCPCS: 99213; G0463

== ENCOUNTER 2024-04-02 07:05 | Day surgery (SDC) | payer OTHER, SELFPAY ==
[2024-03-10 09:20] VITALS: BMI 24.0
--- NOTE | 2024-04-01 13:48 | WPDANESEPPF ---
Anes - Initial Pre Proc Eval Procedure: Operation Date: 04/02/24 09:30 Proposed Procedures p Screening Colonoscopy - Gentry Shields MD Date/Time: 04/01/24 13:48 Surgeon: Gentry Shields MD Pre Op Diagnosis: Neoplasm screening Patient Data Age: 44 Gender: F Height: 1.7 m Weight: 66.4 kg Allergies Allergy/AdvReac Type Severity Reaction Status Date / Time No Known Allergies Allergy Unknown Verified 04/02/24 08:12 Home Medications Medication Instructions Recorded Confirmed Type omeprazole 20 mg capsule,delayed 20 mg PO BID #30 caps 02/13/24 04/02/24 Rx release alprazolam 0.5 mg tablet 0.5 mg PO DAILY anxiety 03/01/24 04/02/24 History Patient hx anesthesia problems: none Family hx anesthesia problems: none Results Review: All pre-operative results and documents have been reviewed as part of the pre-operative evaluation. [facility] Past Medical History Medical History Anxiety Gastritis Surgical History Surgical History History of ankle surgery right 2001 History of anterior cruciate ligament surgery left 1996 History of D&C miscarriage 2006, 2013 Hx laparoscopic cholecystectomy 08/01/23 Family History Family History Father Diabetes mellitus Mother No problems noted. Social History Social History Smoking status: Never smoker Second hand tobacco smoke exposure: No Alcohol intake: current Drinks per week: 0 Alcohol use details: 0-1 drinks per week Substance use: never Substance use type: does not use Do You Feel Safe in your Home?: Yes Lack of Transportation: No Lack of Food: Never True Current Housing: I Have Housing Concerned About Future Housing: No Difficulty Paying Gas/Electric Bills: No Difficulty Paying for Meds: No Currently Unemployed: No Education: Master's Degree or Higher Difficulty w/ Childcare or Family Care: No Living arrangements: with family Occupation/Education: occupation Gender identity (if verbalized by the patient): Female Sexual Orientation (if Verbalized by the Patient): Straight or Heterosexual Spiritual care concerns: No Anes - Eval Final PreProcedure Day of Procedure 04/01/24 13:48 Patient weight: normal Heart: regular rate and rhythm Lungs: clear to auscultation and normal air movement Airway: Mallampati scale class II Neurological: alert and oriented Last oral intake: >/= 8 hours ASA classification: II Emergent: no Anesthetic plan: proceed Anesthesia type and monitoring: general GIVS and standard monitoring Results Review: All pre-operative results and documents have been reviewed as part of the pre-operative evaluation. Informed Consent: The patient's anesthetic plan and its attendant risks and benefits were discussed with the patient/family/POA. Questions were solicited and answers provided to the satisfaction of the patient/family/POA.
[2024-04-02 08:18] VITALS: BP 140/75; PULSE 86; RESP 18; TEMP 36.8; O2SAT 100; BMI 22.9
--- NOTE | 2024-04-02 08:32 | WPDHPUPDATE1 ---
History and Physical Update Update Date/Time: 04/02/24 08:32 History and Physical has been reviewed, including an updated exam of the patient. There are NO changes in the patient's condition. Risks, benefits, and alternatives have been discussed and questions answered. Patient agrees to proceed with procedure.
[2024-04-02] MEDS: LACTATED RINGERS 1,000 ML 150 ML IV CONT (08:35)
[2024-04-02 09:40] VITALS: BP 98/58; PULSE 68; RESP 15; O2SAT 100
[2024-04-02 09:50] VITALS: BP 112/69; PULSE 66; RESP 16; O2SAT 100
[2024-04-02 10:00] VITALS: BP 119/65; PULSE 65; RESP 16; O2SAT 100
--- NOTE | 2024-04-02 15:05 | WPDANESPN ---
Anes - Prog Note Post-Op Date/Time: 04/02/24 15:05 Cardiovascular status: normal Respiratory status: normal Airway patency: baseline Mental status: baseline Post-Op hydration status: normal Vital Signs: Last Vital Signs Temp 36.8 C 04/02/24 08:18 Pulse 65 04/02/24 10:00 Resp 16 04/02/24 10:00 BP 119/65 04/02/24 10:00 Pulse Ox 100 04/02/24 10:00 O2 Del Method Room Air 04/02/24 10:00 Pain Score (VAS): 0 I/O: Intake & Output 04/01/24 04/02/24 04/02/24 23:59 07:59 15:59 Intake Total 450 Balance 450 Post-procedural complaints: none Patient Feedback: Patient satisfied with anesthetic care. Other Findings: Patient vital signs back to baseline. Patient denies nausea and vomiting. Patient's pain under control. Patient OK for discharge.
== END 2024-04-02 10:08 | disposition home or self-care (01) ==
PROVIDERS: PCP Family Medicine; Visit Provider Internal Medicine Gastroenterology
PROC: 0DJD8ZZ Inspection of Lower Intestinal Tract, Via Natural or Artificial Opening Endoscopic (ICD-10-PCS; CPT 45378; principal; 2024-04-02 09:30)
DX: Z12.11 Encounter for screening for malignant neoplasm of colon (principal)
CPT/HCPCS: 45378

== ENCOUNTER 2024-04-04 09:51 | Outpatient (CLI) | payer OTHER, SELFPAY | END 2024-04-04 09:52 | disposition home or self-care (01) | LOC: ANHAUDASC 09:52 | PROVIDERS: PCP Family Medicine; Visit Provider Otolaryngology | DX: H69.92 Unspecified Eustachian tube disorder, left ear (principal); H90.42 Sensorineural hearing loss, unilateral, left ear, with unrestricted hearing on the contralateral side | CPT/HCPCS: 92557; 92567 ==

== ENCOUNTER 2024-07-31 07:42 | Outpatient (CLI) | payer OTHER, SELFPAY ==
--- NOTE | ~2024-07-31 | MM_ITS ---
EXAMINATION: MM screening nicole BI w lissette HISTORY: Screening TECHNIQUE: Craniocaudal and mediolateral oblique 3-D tomosynthesis images were obtained and synthetic 2-D images were generated. CAD analysis was submitted and interpreted. COMPARISON: Comparison to multiple prior studies sequentially, with oldest reviewed study dated 12/14. BREAST PARENCHYMAL COMPOSITION: Dense: The breasts are extremely dense, which lowers the sensitivity of mammography. FINDINGS: The right breast is stable without evidence for malignancy. There are developing asymmetrie s in the left breast which are obscured by fibroglandular tissue. IMPRESSION: 1. Developing left breast asymmetries. 2. Additional mammographic views and possible breast ultrasound are recommended. BI-RADS Category 0: Incomplete: Needs additional imaging evaluation. Reviewed, dictated and finalized at location B. ATION PROTECTION ENGINEER IMPRESSION: 1. Developing left breast asymmetries. 2. Additional mammographic views and possible breast ultrasound are recommended . BI-RADS Category 0: Incomplete: Needs additional imaging evaluation.
== END 2024-07-31 07:43 | disposition home or self-care (01) ==
PROVIDERS: PCP Family Medicine; Visit Provider Obstetrics & Gynecology
DX: Z12.31 Encounter for screening mammogram for malignant neoplasm of breast (principal); R92.8 Other abnormal and inconclusive findings on diagnostic imaging of breast
CPT/HCPCS: 77063; 77067

== ENCOUNTER 2024-09-09 10:15 | Outpatient (CLI) | payer OTHER, SELFPAY ==
--- NOTE | ~2024-09-09 | MR_ITS ---
MR breast BI wo/w con 09/09/2024 11:45 CATERER'S AIDE INDICATION: Dense breast. Developing left breast asymmetries on prior screening mammogram. TECHNIQUE: MRI of the breasts perform using standard protocol pre-and post IV contrast with the follo wing sequences: Axial T2 STIR, axial T1, axial vibrant T1 with fat suppression precontrast and multip hasic postcontrast. COMPARISON: Comparison to multiple prior studies sequentially, with oldest reviewed study dated 07/25. FINDINGS: There are bilateral renal cysts. There is moderate background parenchymal enhancement. In t he lower outer quadrant of the right breast at 8:00, middle third there is a 1 cm enhancing mass with slightly irregular margins, rapid washout kinetics. This mass is located 6.2 cm from the nipple. In the lower outer quadrant of the right breast anteriorly at 7:00 there is a 5 mm enhancing mass with r apid washout kinetics located 6 cm from the nipple. In the lower inner quadrant of the right breast p osteriorly, 8.5 cm from the nipple there is an oval-shaped 7 mm mass with rapid plateau enhancement, 8.5 cm from the nipple. Also in the lower inner quadrant of the right breast there is a 4 mm foci of enhancement with rapid plateau kinetics. This is located at 5:00, middle third 4.5 cm posterior to th e nipple. No evidence of signal abnormalities in the axillary or internal mammary node distributions. LEFT BREAST: There is a 1.5 cm left breast cyst. There is moderate background parenchymal enhancement . There is a small 5 mm enhancing left breast mass with rapid plateau kinetics in the lower outer andres drant at 3:00 anteriorly 4.6 cm posterior to the nipple. No evidence of signal abnormalities in the a xillary or internal mammary node distributions.] IMPRESSION: 1: Bilateral breast masses described above. 2: Diagnostic bilateral mammogram and bilateral breast ultrasound recommended. BI-RADS CATEGORY 0 - INCOMPLETE STUDY, NEED ADDITIONAL IMAGING EVALUATION. Reviewed, dictated and finalized at location B. RER'S AIDE
== END 2024-09-09 10:16 | disposition home or self-care (01) ==
PROVIDERS: PCP Family Medicine; Visit Provider Obstetrics & Gynecology
DX: R92.30 Dense breasts, unspecified (principal); R92.2 Inconclusive mammogram
CPT/HCPCS: 77049; A9577; C8908

== ENCOUNTER 2025-02-06 07:59 | Outpatient (CLI) | payer OTHER, SELFPAY ==
--- OUTSIDE RECORDS SUMMARY | 2025-02-06 08:03 | XMS_ITS | Clinical Summary ---
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 Immunizations Immunization Administration Dates Next Due Influenza, Quadrivalent, Split, Intramuscular Influenza, Quadrivalent, Spl it, Preservative Free, Intramuscular 08/04/2020 Surgical History Surgery Date Site/Laterality Comments ANKLE SURGERY OTHER SURGICAL HISTORY 09/24/1996 - 09/23/1997 acl repair GALLBLADDER SURGERY 09/24/2022 - 09/23/2023 Family History Medical History Relation Name Comments Diabetes Father Diabetes Mellit us - (Added by TW Conv) Obesity Father Obesity - (Adde d by TW Conv) Colon cancer Other maternal mom aunt Relation Name Status Comments Father Other maternal mom aunt Social History Tobacco Use Types Packs/Day Years Used Date Smoking Tobacco: Never Comments Unknown Sex and Gender Information Value Date Recorded Sex Assigned at Not on file Legal Sex Female 10:47 AM OFFICE 365 CONSULTANT Gender Identity Not on file Sexual Orientation Not on file Obstetrics History Last Filed Vital Signs Vital Sign Reading Time Taken Comments Blood Pressure 134/75 03/30/2014 3:25 PM CDT Pulse 83 03/30/2014 3:25 PM CDT Temperature - - Respiratory Rate - - Oxygen Saturation - - Inhaled Oxygen Concentration - - Weight 72.9 kg (160 lb 12.8 oz) 11/05/2024 9:45 AM OFFICE 365 CONSULTANT Height 170.2 cm (5' 7 ) 11/05/2024 9:45 AM OFFICE 365 CONSULTANT Body Mass Index 25.18 11/05/2024 9:45 AM OFFICE 365 CONSULTANT Plan of Treatment Health Maintenance Due Date Last Done Comments Breast Cancer Screening-Mammogram 1979 Cervical Cancer Screening 1979 Colon Cancer Screening-Colonoscopy 1979 Depression Screening 1979 Hepatitis C Screening 1979 DTaP/Tdap/Td Vaccine (1 - Tdap) 1990 Hepatitis B Screening 1997 Regular Well Visit/Exam 18-64 1997 Covid-19 Vaccine (2023-2 5 season) 2024 09/12/2021, 11/25/2020, 10/28/2020 Influenza Vaccine (#1) 2024 2, 08/04/2020 HPV Vaccines Aged Out No longer eligi ble based on patient's age to complete this topic Pneumococcal vaccine <65 Aged Out No longer eligible based on patient's age to complete this topic Insurance [facility] CHOICE PLUS [facility] H[facility]/PPO Address: [facility] [address] [place] [address] [facility] CHOICE PLUS [facility] H[facility]/PPO Address: [facility] [id number] [place], [place] [id number] Care Teams Community Health Promoter Relationship Specialty Start Date End Date Jaycob Martin MD [address] [place] [id number] PCP - General Family Medicine 10/09/24 Talha Ruiz MD [address] [place] [address] Referring Physician Obstetrics and Gynecology 10/02/24
--- OUTSIDE RECORDS SUMMARY | 2025-02-06 08:03 | XMS_ITS | Referral Summary ---
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 Immunizations Immunization Administration Dates Next Due Influenza, Quadrivalent, Split, Intramuscular Influenza, Quadrivalent, Spl it, Preservative Free, Intramuscular 08/04/2020 Social History Tobacco Use Types Packs/Day Years Used Date Smoking Tobacco: Never Comments Unknown Sex and Gender Information Value Date Recorded Sex Assigned at Not on file Legal Sex Female 10:47 AM [employer] Gender Identity Not on file Sexual Orientation Not on file Last Filed Vital Signs Vital Sign Reading Time Taken Comments Blood Pressure 134/75 03/30/2014 3:25 PM CDT Pulse 83 03/30/2014 3:25 PM CDT Temperature - - Respiratory Rate - - Oxygen Saturation - - Inhaled Oxygen Concentration - - Weight 72.9 kg (160 lb 12.8 oz) 11/05/2024 9:45 AM [employer] Height 170.2 cm (5' 7 ) 11/05/2024 9:45 AM [employer] Body Mass Index 25.18 11/05/2024 9:45 AM [employer] Plan of Treatment Not on file Insurance [facility] [employer] [facility] Address: [address] [address] [facility] [facility] [employer] Address: [address] [address] Care Teams Medical Record Transcriber Relationship Specialty Start Date End Date Jaycob Martin MD [address] [place] [id number] PCP - General Family Medicine 10/09/24 Talha Ruiz MD [address] [place] [address] Referring Physician Obstetrics and Gynecology 10/02/24
--- OUTSIDE RECORDS SUMMARY | 2025-02-06 08:03 | XMS_ITS | Data Portability ---
Author Organization [facility] [place] Address [address] [place] [address] Care Team Providers Care Cash Management Officer Name Role Phone MARGUERITE SAMAYOA Primary Care Provider [phone] Assessment Encounter Date Assessment Date Assessment LastModified by Organization Details LastModified Time 04/11/2022 04/11/2022 Annual gynecological exam performed. Patient will come back in a year unless there are new symptoms. [email or web address] Not available 04/11/2022 12:23:49 05/23/2023 05/23/2023 Annual gynecological exam performed. Patient will come back in a year unless there are new symptoms. [email or web address] Not available 05/23/2023 15:35:22 05/30/2024 05/30/2024 Annual gynecological exam performed. Patient will come back in a year unless there are new symptoms. [email or web address] Not available 05/30/2024 16:34:59 Plan of Treatment Reminders Order Date Submit Date Provider Last Modified By Organization Details Last Modified Time Details Appointments None recorded. Lab lipid panel, blood 2021 022 [facility] (Lab), [address], [place], [address], 05:40:46 HbA1c (hemoglobi n A1c), blood 2021 022 [facility] (Lab), [address], [place], [address], 05:40:47 CMP, serum or plasma 2021 022 [facility] (Lab), [address], [place], [address], 2 05:40:46 vitamin D, 25-hydroxy , total, serum 2021 022 [facility] (Lab), [address], [place], [address], 2 05:40:47 CBC w/ auto diff 2021 022 [facility] (Lab), [address], [place], [address], 2 05:40:45 TSH, serum or plasma 2021 022 [facility] (Lab), [address], [place], [address], 2 05:40:47 CBC w/ auto diff 2020 021 [facility] (Lab), [address], [place], [address], 1 03:24:37 CMP, serum or plasma 2020 021 [facility] (Lab), [address], [place], [address], 1 03:24:38 lipid panel, blood 2020 021 [facility] (Lab), [address], [place], [address], 1 03:24:38 TSH, serum or plasma 2020 021 [facility] (Lab), [address], [place], [address], 1 03:24:38 vitamin D, 25-hydroxy , total, serum 2020 021 [facility] (Lab), [address], [place], [address], 03:24:39 Referral None recorded. Procedures None recorded. Surgeries None recorded. Imaging MAMMO, screening, digital, bilateral 2023 024 [facility], [address], [place], [address], 13:19:07 Medication Orders None recorded. Patient TargetsNo targets recorded. Patient InstructionsNo instructions recorded. Reason for Referral None Reported. Results Created Date Observation Date Name Description Value Unit Range Abnormal Flag Note LastModifiedBy Organization Detail LastModifiedTime 03/23/20 21 03/23/2021 CBC W/DIF F WBC 5.7 10'3/ uL 3.6-10 .2 Not Available [facility] (Lab) [address], [place], [address], 03/24/2021 03:24:36 03/23/20 21 03/23/2021 CBC W/DIF F RBC 3.90 10'6/ uL (based on docume nted legal sex) 4.10-5 .30 low Not Available [facility] (Lab) [address], [place], [address], 03/24/2021 03:24:36 03/23/20 21 03/23/2021 CBC W/DIF F HGB 11.6 g/dL (based on docume nted legal sex) 11.9-1 5.8 low Not Available [facility] (Lab) [address], [place], [address], 03/24/2021 03:24:36 03/23/20 21 03/23/2021 CBC W/DIF F HCT 36.6 % (based on docume nted legal sex) 37.4-4 8.3 low Not Available [facility] (Lab) [address], [place], [address], 03/24/2021 03:24:36 03/23/20 21 03/23/2021 CBC W/DIF F MCV 95.0 fL 82.0-9 9.0 Not Available [facility] (Lab) [address], [place], [address], 03/24/2021 03:24:36 03/23/20 21 03/23/2021 CBC W/DIF F MCH 30.0 pg 27.0-3 3.0 Not Available [facility] (Lab) [address], [place], [address], 03/24/2021 03:24:36 03/23/20 21 03/23/2021 CBC W/DIF F MCHC 32.0 g/dL 32.0-3 6.0 Not Available [facility] (Lab) [address], [place], [address], 03/24/2021 03:24:36 03/23/20 21 03/23/2021 CBC W/DIF F RDW 13.0 % 11.0-1 5.0 Not Available [facility] (Lab) [address], [place], [address], 03/24/2021 03:24:36 03/23/20 21 03/23/2021 CBC W/DIF F plt 249 10'3/ uL 150-45 0 Not Available [facility] (Lab) [address], [place], [address], 03/24/2021 03:24:36 03/23/20 21 03/23/2021 CBC W/DIF F MPV 11.4 fL Not Available [facility] (Lab) [address], [place], [address], 03/24/2021 03:24:36 03/23/20 21 03/23/2021 CBC W/DIF F NRBC's 0.00 % 0 Not Available [facility] (Lab) [address] [place], [address], 03/24/2021 03:24:36 03/23/20 21 03/23/2021 CBC W/DIF F absolute NRBCs 0.0 10'3/ uL 0 Not Available [facility] (Lab) [address], [place], [address], 03/24/2021 03:24:36 03/23/20 21 03/23/2021 CBC W/DIF F neutrophils 58.0 % 37.0-7 2.0 Not Available [facility] (Lab) [address], [place], [address], 03/24/2021 03:24:36 03/23/20 21 03/23/2021 CBC W/DIF F lymphocytes 29.0 % 16.0-4 8.0 Not Available [facility] (Lab) [address], [place], [address], 03/24/2021 03:24:36 03/23/20 21 03/23/2021 CBC W/DIF F monocytes 8.0 % 4.0-14 .0 Not Available [facility] (Lab) [address], [place], [address], 03/24/2021 03:24:36 03/23/20 21 03/23/2021 CBC W/DIF F eosinophils 4.0 % 0.0-9. 0 Not Available [facility] (Lab) [address], [place], [address], 03/24/2021 03:24:36 03/23/20 21 03/23/2021 CBC W/DIF F basophils 1.0 % 0.0-2. 0 Not Available [facility] (Lab) [address] [place], [address], 03/24/2021 03:24:36 03/23/20 21 03/23/2021 CBC W/DIF F immature granulocytes 0.0 % no define d refere nce range Not Available [facility] (Lab) [address] [place], [address], 03/24/2021 03:24:36 03/23/20 21 03/23/2021 CBC W/DIF F absolute neutrophils 3.3 10'3/ uL 1.1-6. 0 Not Available [facility] (Lab) [address] [facility], [place], [address], 03/24/2021 03:24:36 03/23/20 21 03/23/2021 CBC W/DIF F absolute lymphocytes 1.6 10'3/ uL 0.7-3. 4 Not Available [facility] (Lab) [address] [facility], [place], [address], 03/24/2021 03:24:36 03/23/20 21 03/23/2021 CBC W/DIF F absolute monocytes 0.4 10'3/ uL 0.3-1. 0 Not Available [facility] (Lab) [address] [facility], [place], [address], 03/24/2021 03:24:36 03/23/20 21 03/23/2021 CBC W/DIF F absolute eosinophils 0.2 10'3/ uL 0.0-0. 6 Not Available [facility] (Lab) [address] [facility], [place], [address], 03/24/2021 03:24:36 03/23/20 21 03/23/2021 CBC W/DIF F absolute basophils 0.0 10'3/ uL 0.0-0. 1 Not Available [facility] (Lab) [address] [facility], [place], [address], 03/24/2021 03:24:36 03/23/20 21 03/23/2021 CBC W/DIF F absolute immature granulocytes 0.00 10'3/ uL 0.00-0 .10 021 12:26 AM: P indic ates parti al resul ts on a panel have been relea sed. Addit ional resul ts will follo w. 021 12:26 AM: This resul t has been final verif ied. No addit ional or powell ed resul ts are expec blair. Not Available [facility] (Lab) [address] [place], [address], 03/24/2021 03:24:36 03/23/20 21 03/23/2021 LIPID PANEL ,AMA (LDL- CALC) total cholesterol 149 mg/dL 0-199 Not Available [facility] (Lab) [address] [place], [address], 03/24/2021 03:24:38 03/23/20 21 03/23/2021 LIPID PANEL ,AMA (LDL- CALC) triglyceride s 58 mg/dL 0.00-1 50.00 NCEP Refer ence Value s for Trigl yceri maksim: Amanda l: <150 mg/dL Borde rline High: 150 - 199 mg/dL High: 200 - 499 mg/dL Very High: >/= 500 mg/dL Not Available [facility] (Lab) [address] [place], [address], 03/24/2021 03:24:38 03/23/20 21 03/23/2021 LIPID PANEL ,AMA (LDL- CALC) HDL cholesterol 65 mg/dL 23-92 Not Available [facility] (Lab) [address] [place], [address], 03/24/2021 03:24:38 03/23/20 21 03/23/2021 LIPID PANEL ,AMA (LDL- CALC) LDL cholesterol 72 mg/dL 0-99 Cutof f value s recom raghu d by the Natio nal Arleen stero l Educa tion Progr am: AISHA ABLE: Arleen stero l <200 mg/dL LDL <100 mg/dL BORDE RLINE : Arleen stero l 200-2 39 mg/dL LDL 101-1 59 mg/dL HIGHE R RISK: Arleen stero l >240 mg/dL LDL >160 mg/dL , HDL <40 mg/dL Not Available [facility] (Lab) [address] [place], [address], 03/24/2021 03:24:38 03/23/20 21 03/23/2021 LIPID PANEL ,AMA (LDL- CALC) non-HDL cholesterol 84 mg/dL no refere nce range A reaso nable goal for non-H DL arleen stero l is one that is 30 mg/dL highe r than the LDL arleen stero l goal. Not Available [facility] (Lab) [address] [facility], [place], [address], 03/24/2021 03:24:38 03/23/20 21 03/23/2021 LIPID PANEL ,AMA (LDL- CALC) chol/HDL ratio 2.3 . 0.0-5. 0 Not Available [facility] (Lab) [address] [facility], [place], [address], 03/24/2021 03:24:38 03/23/20 21 03/23/2021 CMP(C OMPRE HENSI VE METAB OLIC PANEL ) sodium 138 mmol/ L 136-14 5 Not Available [facility] (Lab) [address] [facility], [place], [address], 03/24/2021 03:24:38 03/23/20 21 03/23/2021 CMP(C OMPRE HENSI VE METAB OLIC PANEL ) potassium 4.2 mmol/ L 3.5-5. 1 Not Available [facility] (Lab) [address] [place], [address], 03/24/2021 03:24:38 03/23/20 21 03/23/2021 CMP(C OMPRE HENSI VE METAB OLIC PANEL ) chloride 106 mmol/ L 98-107 Not Available [facility] (Lab) [address] [place], [address], 03/24/2021 03:24:38 03/23/20 21 03/23/2021 CMP(C OMPRE HENSI VE METAB OLIC PANEL ) carbon dioxide 26 mmol/ L 21-31 Not Available [facility] (Lab) [address] [place], [address], 03/24/2021 03:24:38 03/23/20 21 03/23/2021 CMP(C OMPRE HENSI VE METAB OLIC PANEL ) anion gap 6 mmol/ L 4-13 Not Available [facility] (Lab) [address] [facility], [place], [address], 03/24/2021 03:24:38 03/23/20 21 03/23/2021 CMP(C OMPRE HENSI VE METAB OLIC PANEL ) blood urea nitrogen 13 mg/dL 7-25 Not Available [facility] (Lab) [address] [facility], [place], [address], 03/24/2021 03:24:38 03/23/20 21 03/23/2021 CMP(C OMPRE HENSI VE METAB OLIC PANEL ) creatinine 0.73 mg/dL 0.60-1 .30 Not Available [facility] (Lab) [address] [facility], [place], [address], 03/24/2021 03:24:38 03/23/20 21 03/23/2021 CMP(C OMPRE HENSI VE METAB OLIC PANEL ) GFR () 106 mL/mi n/1.7 3_m2 60-300 Not Available [facility] (Lab) [address] [facility], [place], [address], 03/24/2021 03:24:38 03/23/20 21 03/23/2021 CMP(C OMPRE HENSI VE METAB OLIC PANEL ) GFR (others) 87 mL/mi n/1.7 3_m2 60-300 Not Available [facility] (Lab) [address] [facility], [place], [address], 03/24/2021 03:24:38 03/23/20 21 03/23/2021 CMP(C OMPRE HENSI VE METAB OLIC PANEL ) calcium 9.1 mg/dL 8.6-10 .2 Not Available [facility] (Lab) [address] [facility], [place], [address], 03/24/2021 03:24:38 03/23/20 21 03/23/2021 CMP(C OMPRE HENSI VE METAB OLIC PANEL ) glucose 92 mg/dL 70-100 Not Available [facility] (Lab) [address] [facility], [place], [address], 03/24/2021 03:24:38 03/23/20 21 03/23/2021 CMP(C OMPRE HENSI VE METAB OLIC PANEL ) protein, total 6.8 g/dL 6.4-8. 3 Not Available [facility] (Lab) [address] [facility], [place], [address], 03/24/2021 03:24:38 03/23/20 21 03/23/2021 CMP(C OMPRE HENSI VE METAB OLIC PANEL ) albumin 4.3 g/dL 3.5-5. 0 Not Available [facility] (Lab) [address] [facility], [place], [address], 03/24/2021 03:24:38 03/23/20 21 03/23/2021 CMP(C OMPRE HENSI VE METAB OLIC PANEL ) ALT 10 units /L 9-43 Not Available [facility] (Lab) [address] [facility], [place], [address], 03/24/2021 03:24:38 03/23/20 21 03/23/2021 CMP(C OMPRE HENSI VE METAB OLIC PANEL ) alkaline phosphatase 50 units /L 34-104 Not Available [facility] (Lab) [address] [facility], [place], [address], 03/24/2021 03:24:38 03/23/20 21 03/23/2021 CMP(C OMPRE HENSI VE METAB OLIC PANEL ) AST 14 units /L 13-39 Not Available [facility] (Lab) [address] [place], [address], 03/24/2021 03:24:38 03/23/20 03/23/2021 CMP(C OMPRE HENSI VE METAB OLIC PANEL ) bilirubin, total 0.6 mg/dL 0.2-1. 2 Not Available [facility] (Lab) [address] [place], [address], 03/24/2021 03:24:38 03/23/20 21 03/23/2021 TSH, REFLE X FREE T4 TSH 1.28 uIU/m L 0.30-5 .33 Not Available [facility] (Lab) [address] [place], [address], 03/24/2021 03:24:38 03/23/20 21 03/23/2021 VITAM IN D, 25-OH (TOTA L D2/D3 ) vitamin D, 25-hydroxy, total 37.4 NG/mL 30-80 NOTE: Defic iency : <20 ng/mL Insuf ficie ncy: 20-29 ng/mL Optim um Level : 30-80 ng/mL Possi ble Toxic ity: >80 ng/mL Most patie nts with toxic ity have level s >150 ng/mL . Not Available [facility] (Lab) [address] [facility], [place], [address], 03/24/2021 03:24:39 03/23/20 21 03/23/2021 IMAGE GUIDE D PAP AND HPV REGAR DLESS image guided Pap, HPV regardless of Pap result SEE RESULT S BELOW CASE REPOR T: Cytol ogy Gynec ologi josef Repor t Case: [id number] Autho rupali veras Provi galindo: Jodi Castellon, DADA Colle cted: 03/23 1054 Order ing Locat ion: [place] [facility] Recei marie: 03/24 0124 First Scree n: Malini Martinez ret, CT Speci men: Scree brenda Pap - Image d, Cervi x STATE MENT OF ADEQU ACY: Satis facto ry for evalu ation Trans forma tion zone compo nent prese nt FINAL DIAGN OSIS: Negat sandra for Intra epith elial Lesio n or Frances bui Elect [facility] jarvis d by Malini Martinez ret, CT on at 1:23 PM ----- ----- ----- ----- ----- ----- ----- ----- ----- ----- ----- ----- ----- ----- ----- ----- ----- ---- HPV RESUL TS: HPV mRNA E6/E7 : No HPV mRNA Detec blair NOTE: This high risk HPV mRNA assay detec ts fourt een high- risk HPV types (16, 18, 31, 33, 35, 39, 45, 51, 52, 56, 58, 59, 66, 68) witho ut diffe renti ation . CHART ABLE COMME NT: Note: This speci men was revie wed by a Cytot echno logis t and/o r Patho logis t (as indic ated in this repor t) after evalu ation using the Thinp rep Imagi ng Syste m. CLINI JOSEF INFOR MATIO N: Menst rual Statu s: LMP (if appli cable ): Clini josef Histo ry/Pr eviou s Pap: Type of Neopl kalyani (if appli cable ): Other Histo ry: Hormo dusty (if appli cable ): PAP EDUCA GERARDO L NOTE: The Pap Test is a scree brenda test with an inher ent false negat sandra rate. Liqui d-bas e sampl ing may decre ase, but will not elimi zohra, false negat sandra resul ts. A negat sandra resul t does not precl ude the prese nce and/o r devel opmen t of disea se, since the prese nce of abnor mal cells in the sampl e depen ds on the locat ion of the lesio n and sampl ing techn ique. Jeanine nued regul ar scree brenda is the best metho d of cance r preve ntion . If repor blair cytol ogic findi ng do not corre late with physi josef and/o r histo rical findi ngs, furth er inves tigat ion is recom raghu d, as clini judit torres nted. Not Available [facility] (Lab) [address], [place], [address], 03/25/2021 14:25:36 04/11/20 22 04/11/2022 CBC W/DIF F WBC 6.5 10'3/ uL 3.6-10 .2 Not Available [facility] [address] [place], [place] [address], [address], 04/12/2022 05:40:45 04/11/20 22 04/11/2022 CBC W/DIF F RBC 3.90 10'6/ uL (based on docume nted legal sex) 4.10-5 .30 low Not Available [facility] [address] [place] [address], [address], 04/12/2022 05:40:45 04/11/20 22 04/11/2022 CBC W/DIF F HGB 11.7 g/dL (based on docume nted legal sex) 11.9-1 5.8 low Not Available [facility] [address] [place] [address], [address], 04/12/2022 05:40:45 04/11/20 22 04/11/2022 CBC W/DIF F HCT 36.0 % (based on docume nted legal sex) 37.4-4 8.3 low Not Available [facility] [address] [place] [address], [address], 04/12/2022 05:40:45 04/11/20 22 04/11/2022 CBC W/DIF F MCV 93.0 fL 82.0-9 9.0 Not Available [facility] [address] [place], [place] [address], [address], 04/12/2022 05:40:45 04/11/20 22 04/11/2022 CBC W/DIF F MCH 30.0 pg 27.0-3 3.0 Not Available [facility] [place], [address], 04/12/2022 05:40:45 04/11/20 22 04/11/2022 CBC W/DIF F MCHC 33.0 g/dL 32.0-3 6.0 Not Available [facility] [address] [place], [place] [address], [address], 04/12/2022 05:40:45 04/11/20 22 04/11/2022 CBC W/DIF F RDW 13.0 % 11.0-1 5.0 Not Available [facility] [address] [place] [address], [address], 04/12/2022 05:40:45 04/11/20 22 04/11/2022 CBC W/DIF F plt 287 10'3/ uL 150-45 0 Not Available [facility] [address] [place] [address], [address], 04/12/2022 05:40:45 04/11/20 22 04/11/2022 CBC W/DIF F MPV 11.0 fL 9.8-12 .7 Not Available [facility] [address] [place] [address], [address], 04/12/2022 05:40:45 04/11/20 22 04/11/2022 CBC W/DIF F NRBC's 0.00 % 0 Not Available [facility] [address] [place] [address], [address], 04/12/2022 05:40:45 04/11/20 22 04/11/2022 CBC W/DIF F absolute NRBCs 0.0 10'3/ uL 0 Not Available [facility] [place], [address], 04/12/2022 05:40:45 04/11/20 22 04/11/2022 CBC W/DIF F neutrophils 62.0 % 37.0-7 2.0 Not Available [facility] [place], [address], 04/12/2022 05:40:45 04/11/20 22 04/11/2022 CBC W/DIF F lymphocytes 28.0 % 16.0-4 8.0 Not Available [facility] [place], [address], 04/12/2022 05:40:45 04/11/20 22 04/11/2022 CBC W/DIF F monocytes 7.0 % 4.0-14 .0 Not Available [facility] [address] [place] [address], [address], 04/12/2022 05:40:45 04/11/20 22 04/11/2022 CBC W/DIF F eosinophils 2.0 % 0.0-9. 0 Not Available [facility] [address] [place] [address], [address], 04/12/2022 05:40:45 04/11/20 22 04/11/2022 CBC W/DIF F basophils 1.0 % 0.0-2. 0 Not Available [facility] [address] [place] [address], [address], 04/12/2022 05:40:45 04/11/20 22 04/11/2022 CBC W/DIF F immature granulocytes 0.0 % no define d refere nce range Not Available [facility] [place], [address], 04/12/2022 05:40:45 04/11/20 22 04/11/2022 CBC W/DIF F absolute neutrophils 4.0 10'3/ uL 1.1-6. 0 Not Available [facility] [address] [place] [address], [address], 04/12/2022 05:40:45 04/11/20 22 04/11/2022 CBC W/DIF F absolute lymphocytes 1.8 10'3/ uL 0.7-3. 4 Not Available [facility] [address] [place] [address], [address], 04/12/2022 05:40:45 04/11/20 22 04/11/2022 CBC W/DIF F absolute monocytes 0.5 10'3/ uL 0.3-1. 0 Not Available [facility] [address] [place] [address], [address], 04/12/2022 05:40:45 04/11/20 22 04/11/2022 CBC W/DIF F absolute eosinophils 0.2 10'3/ uL 0.0-0. 6 Not Available [facility] [address] [place] [address], [address], 04/12/2022 05:40:45 04/11/20 22 04/11/2022 CBC W/DIF F absolute basophils 0.1 10'3/ uL 0.0-0. 1 Not Available [facility] [address] [place] [address], [address], 04/12/2022 05:40:45 04/11/20 22 04/11/2022 CBC W/DIF F absolute immature granulocytes 0.00 10'3/ uL 0.00-0 .10 2021 4:00 AM: P indic ates parti al resul ts on a panel have been relea sed. Addit ional resul ts will follo w. 2021 4:00 AM: This resul t has been final verif ied. No addit ional or powell ed resul ts are expec blair. Not Available [facility] [address] [place] [address], [address], 04/12/2022 05:40:45 04/11/20 22 04/11/2022 LIPID PANEL ,AMA (LDL- CALC) total cholesterol 174 mg/dL 0-199 Not Available [facility] [address] [place] [address], [address], 04/12/2022 05:40:46 04/11/20 22 04/11/2022 LIPID PANEL ,AMA (LDL- CALC) triglyceride s 88 mg/dL 0.00-1 50.00 NCEP Refer ence Value s for Trigl yceri maksim: Amanda l: <150 mg/dL Borde rline High: 150 - 199 mg/dL High: 200 - 499 mg/dL Very High: >/= 500 mg/dL Not Available [facility] [address] [place], [address], 04/12/2022 05:40:46 04/11/20 22 04/11/2022 LIPID PANEL ,AMA (LDL- CALC) HDL cholesterol 60 mg/dL >40 Not Available [facility] [address] [place] [address], [address], 04/12/2022 05:40:46 04/11/20 22 04/11/2022 LIPID PANEL ,AMA (LDL- CALC) LDL cholesterol 96 mg/dL 0-99 Cutof f value s recom raghu d by the Bhargavi nal Arleen stero l Educa tion Progr am: AISHA ABLE: Arleen stero l <200 mg/dL LDL <100 mg/dL BORDE RLINE : Arleen stero l 200-2 39 mg/dL LDL 101-1 59 mg/dL HIGHE R RISK: Arleen stero l >240 mg/dL LDL >160 mg/dL , HDL <40 mg/dL Not Available [facility] [address] [place] [address], [address], 04/12/2022 05:40:46 04/11/20 22 04/11/2022 LIPID PANEL ,AMA (LDL- CALC) non-HDL cholesterol 114 mg/dL no refere nce range A reaso nable goal for non-H DL arleen stero l is one that is 30 mg/dL highe r than the LDL arleen stero l goal. Not Available [facility] [address] [place], [place] [address], [address], 04/12/2022 05:40:46 04/11/20 22 04/11/2022 LIPID PANEL ,AMA (LDL- CALC) chol/HDL ratio 2.9 . 0.0-5. 0 Not Available [facility] [address] [place] [address], [address], 04/12/2022 05:40:46 04/11/20 22 04/11/2022 CMP(C OMPRE HENSI VE METAB OLIC PANEL ) sodium 140 mmol/ L 133-14 6 Not Available [facility] [address] [place] [address], [address], 04/12/2022 05:40:46 04/11/20 22 04/11/2022 CMP(C OMPRE HENSI VE METAB OLIC PANEL ) potassium 4.3 mmol/ L 3.5-5. 1 Not Available [facility] [address] [place] [address], [address], 04/12/2022 05:40:46 04/11/20 22 04/11/2022 CMP(C OMPRE HENSI VE METAB OLIC PANEL ) chloride 104 mmol/ L 98-107 Not Available [facility] [address] [place] [address], [id number], 04/12/2022 05:40:46 04/11/20 22 04/11/2022 CMP(C OMPRE HENSI VE METAB OLIC PANEL ) carbon dioxide 27 mmol/ L 21-31 Not Available [facility] [place], [phone], 04/12/2022 05:40:46 04/11/20 22 04/11/2022 CMP(C OMPRE HENSI VE METAB OLIC PANEL ) anion gap 9 mmol/ L 4-13 Not Available [facility] [address] [place], [place] [address], [phone], 04/12/2022 05:40:46 04/11/20 22 04/11/2022 CMP(C OMPRE HENSI VE METAB OLIC PANEL ) blood urea nitrogen 18 mg/dL 7-25 Not Available [facility] [address] [place], [place] [address], [phone], 04/12/2022 05:40:46 04/11/20 22 04/11/2022 CMP(C OMPRE HENSI VE METAB OLIC PANEL ) creatinine 0.75 mg/dL 0.60-1 .30 Not Available [facility] Disease [address] [place], [place] [address], [phone], 04/12/2022 05:40:46 04/11/20 22 04/11/2022 CMP(C OMPRE HENSI VE METAB OLIC PANEL ) egfrcr (CKD-epi 2020) >90 mL/mi n/1.7 3_m2 >=60 Not Available [facility] [address] [place], [place] [address], [phone], 04/12/2022 05:40:46 04/11/20 22 04/11/2022 CMP(C OMPRE HENSI VE METAB OLIC PANEL ) calcium 9.8 mg/dL 8.3-10 .5 Not Available [facility] [address] [place], [place] [address], [address], 04/12/2022 05:40:46 04/11/20 22 04/11/2022 CMP(C OMPRE HENSI VE METAB OLIC PANEL ) glucose 81 mg/dL 70-100 Not Available [facility] [place], [address], 04/12/2022 05:40:46 04/11/20 22 04/11/2022 CMP(C OMPRE HENSI VE METAB OLIC PANEL ) protein, total 6.9 g/dL 6.4-8. 3 Not Available [facility] [address] [place], [place] [address], [address], 04/12/2022 05:40:46 04/11/20 22 04/11/2022 CMP(C OMPRE HENSI VE METAB OLIC PANEL ) albumin 4.3 g/dL 3.5-5. 0 Not Available [facility] [address] [place], [place] [address], [address], 04/12/2022 05:40:46 04/11/20 22 04/11/2022 CMP(C OMPRE HENSI VE METAB OLIC PANEL ) ALT 10 units /L 9-43 Not Available [facility] [address] [place], [place] [address], [address], 04/12/2022 05:40:46 04/11/20 22 04/11/2022 CMP(C OMPRE HENSI VE METAB OLIC PANEL ) alkaline phosphatase 48 units /L 34-104 Not Available [facility] [address] [place], [place] [address], [address], 04/12/2022 05:40:46 04/11/20 22 04/11/2022 CMP(C OMPRE HENSI VE METAB OLIC PANEL ) AST 13 units /L 13-39 Not Available [facility] [address] [place] [address], [address], 04/12/2022 05:40:46 04/11/20 22 04/11/2022 CMP(C OMPRE HENSI VE METAB OLIC PANEL ) bilirubin, total 0.5 mg/dL 0.2-1. 2 Not Available [facility] [address] [place], [address], 04/12/2022 05:40:46 04/11/20 22 04/11/2022 TSH, REFLE X FREE T4 TSH 1.28 uIU/m L 0.30-5 .33 Not Available [facility] [address] [place], [address], 04/12/2022 05:40:47 [id number]|2025-02-06 08:03:00|2025-02-06 08:03:00|XMS_ITS|BKG DAEMON|External Medical Summaries|[id number]|" Encounter Summary Created on: February 06, 2025 Sierar Amador : 1980 Sex: Female Author Organization [facility] Healthcare Address [address] [place] [address] Care Team Providers Care Cash Management Officer Name Role Phone Unavailable Primary Care Provider Unavailabl e Reason for Visit * Diagnostic Imaging (Routine) - Pending Review Specialty Diagnoses / Procedures Referred By Contac t Referred To Contact Procedures Breast Imaging Screening Outside Reference Lamar Beck NP [address] [facility] [place] [id number] [place] [address] Phone: tel: fax: Referral ID Status Reason Start Date Expiration Date V isits Requested Visits Authorized [id number] Pending Review 10/14/2024 11/13/2025 1 1 Encounter Details Date Type Department Care Team (Late st Contact Info) Description 12/15/2019 Hospital Encounter [facility] ([facility]) [address] [place] [id number] Social History Tobacco Use Types Packs/Day Years Used Date Smoking Tobacco: Never Comments Unknown Sex and Gender Information Value Date Recorded Sex Assigned at Not on file 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 There will be no report generated by a [facility] Radiologist. Narrative [facility] - 10/14/2024 8:36 PM STUDENT TEACHER EXAMINATION: Images For Reference Purposes Only us Lamar Beck RN CORRECTIONAL IMG MAMMO PROCEDURES Final Result [facility] documented in this encounter Visit Diagnoses Not on filedocumented in this encounter "
--- OUTSIDE RECORDS SUMMARY | 2025-02-06 08:03 | XMS_ITS | Clinical Summary ---
Author Organization [facility] Address [address] [place] [id number] Care Team Providers Care General Utility Maintenance Repairer Name Role Phone Jaycob Martin MD Primary Care Provider [phone] Allergies No known active allergies Medications omeprazole (PRILOSEC) 20 MG capsule Take 1 capsule (20 mg total) by mouth daily. 30 capsule 01/02/2023 Active Social History Tobacco Use Types Packs/Day Years Used Date Smoking Tobacco: Never Smokeless Tobacco: Never Tobacco Cessation:Counseling Given: Not Answered Alcohol Use Standard Drinks/Week Comments Not Currently 0 (1 standard drink = 0.6 oz pur e alcohol) Comments Unknown Sex and Gender Information Value Date Recorded Sex Assigned at Not on file Legal Sex Female 3:53 PM CDT Gender Identity Not on file Sexual Orientation Not on file Last Filed Vital Signs Vital Sign Reading Time Taken Comments Blood Pressure 125/76 01/02/2023 7:10 PM CDT Pulse 70 01/02/2023 7:10 PM CDT Temperature 36.8 C (98.2 F) 01/02/2023 4:04 PM CDT Respiratory Rate 20 01/02/2023 7:10 PM CDT Oxygen Saturation 100% 01/02/2023 7:10 PM CDT Inhaled Oxygen Concentration - - Weight 79.4 kg (175 lb) 01/02/2023 4:04 PM CDT Height 170.2 cm (5' 7 ) 01/02/2023 4:04 PM CDT Body Mass Index 27.41 01/02/2023 4:04 PM CDT Plan of Treatment Health Maintenance Due Date Last Done Comments Colorectal Cancer Screening Colonoscopy (10 Years) 1980 Annual Physical 1982 Hepatitis C 1997 DTaP, Tdap and Td Vaccines ( 1 - Tdap) 1998 Hepatitis B Vaccines (1 of 3 - 19+ 3-dose series) 1998 Cervical Cancer Screening Pa p with HPV Testing (Age 30 to 64) Every 5 Years 2009 Mammogram Screening 2019 COVID-19 Vaccine (4 - 2023-2 5 season) 2024 09/12/2021, 11/25/2020, 10/28/2020 Cervical Cancer Screening Pa p Smear (Age 30 to 64) Every 3 Years 04/11/2025 04/11/2022 Cervical Cancer Screening wi th HPV 04/11/2025 HPV Vaccines Aged Out No longer eligi ble based on patient's age to complete this topic Meningococcal B Vaccine Aged Out No l onger eligible based on patient's age to complete this topic Meningococcal Vaccine Aged Out No jose antonio malcom eligible based on patient's age to complete this topic Pneumococcal Vaccine: Pediatrics (0 to 5 Years) and At-Risk Patients (6 to 49 Years) Aged Out No longer eligible b ased on patient's age to complete this topic RSV Immunizations Under 20 Months Aged Out No longer eligible b ased on patient's age to complete this topic Insurance [facility] [place] [address] Care Teams General Utility Maintenance Repairer Relationship Specialty Start Date End Date Jaycob Martin MD [address] [place] [id number] PCP - General FAMILY PRACTICE 01/02/23
--- OUTSIDE RECORDS SUMMARY | 2025-02-06 08:03 | XMS_ITS | Patient Health Record ---
Author Organization [facility], [facility] Address [address] [place] [address] Care Team Providers Care Electric Scoop Operator Name Role Phone Quang Zarco Primary Care Provider Carey Kapadia Unavailable Reason For Referral No Information Immunizations Vaccine Route Administration Date Status Comme nts COVID-19 Moderna 1ST IM Intramuscular 10/28/2020 Administered EUA date 0. Screening reviewed and consent signed. Patient tolerated well. COVID-19 Moderna 2nd IM Intramuscular 11/25/2020 Administered Plan Of Treatment No Information Insurance Providers Payer Name Payer Address Payer Phone Subscriber Number Group Number Insured Name Patient Relationship to Insured Coverage Start Date Coverage End Date [facility] [address] [place] [phone] [id number] Sierra Amador Self - patient is the insured 1
== END 2025-02-06 08:00 | disposition home or self-care (01) ==
PROVIDERS: PCP Family Medicine; Visit Provider Otolaryngology
DX: H69.92 Unspecified Eustachian tube disorder, left ear (principal); H93.12 Tinnitus, left ear; H90.3 Sensorineural hearing loss, bilateral; H90.42 Sensorineural hearing loss, unilateral, left ear, with unrestricted hearing on the contralateral side
CPT/HCPCS: 92557; 92567